=== PATIENT | male | born 1980 | race Caucasian/White ===

== ENCOUNTER 2019-03-20 18:19 | Inpatient (IN) | payer SELFPAY ==
[2019-03-20] MEDS ORDERED: diphenhydrAMINE HCL 50 MG CAPSULE PO ONE (18:39)
--- NOTE | 2019-03-20 18:39 | PDOC ---
Rapid Medical Evaluation Time Seen by Provider: 03/20/19 18:36 Medical Evaluation: 03/20/19 18:37 CC: rash and myalgias. recent travel to [place]: fine pink macular rash to entire body Orders: benadryl Patient will proceed Discharge Disposition - Diagnosis Rash - Referrals - Patient Instructions - Post Discharge Activity
[2019-03-20] MEDS ORDERED: diphenhydrAMINE HCL 25 MG CAPSULE (FP) PO ONE (19:48)
[2019-03-20] MEDS ORDERED: SODIUM CHLORIDE 1,000 ML IV STA ×2 (20:21→22:08)
[2019-03-20] MEDS ORDERED: methylPREDNISolone NA SUCC 125 MG/2 ML VIAL IVPUSH ONE (20:21)
--- NOTE | 2019-03-20 20:21 | PDOC ---
History of Present Illness - General Chief Complaint: Rash Stated Complaint: TORSO/RASHES/INTERNAL DISCOMFORT Time Seen by Provider: 03/20/19 18:36 History Source: Patient Exam Limitations: No Limitations - History of Present Illness Initial Comments: 38 year old male with PMH HTN (lifestyle management) presented to ED for diffuse body rash since Wednesday morning. Pt reported wednesday night he began to feel generalized weakness, and so his mother gave him an Amoxicillin pill, which did not improve his symptoms. [place] , and he took two Albendazole pills 03/12/19 because "I figured I should flush myself out, you never know what you eat there". Pt also reported starting a multi-vitamin x5 days ago. He denied new soaps, fragrances, detergents. He denied nausea, vomiting, shortness of breath, chest pain, lightheadedness, syncope. He reported he has been taking Benadryl at home without relief of his pain. He denied memory of mosquito bite. PCP: none Past History - Past Medical History Allergies/Adverse Reactions: Allergies Allergy/AdvReac Type Severity Reaction Status Date / Time No Known Allergies Allergy Verified 03/20/19 18:37 Home Medications: Ambulatory Orders Diphenhydramine [Benadryl -] 50 mg PO DAILY 03/20/19 - Immunization History Immunization Up to Date: Yes - Psycho Social/Smoking Cessation Hx Smoking History: Never smoked Hx Alcohol Use: No Drug/Substance Use Hx: No Review of Systems - Review of Systems Able to Perform ROS?: Yes Comments:: ROS General: denied fever, chills, generalized weakness. HEENT: denied sore throat, rhinorrhea, ear pain. Cardiovascular: denied chest pain, palpitations, syncope, diaphoresis. Respiratory: denied shortness of breath, cough, sputum production, hemoptysis. Gastrointestinal: denied abdominal pain, nausea, vomiting, diarrhea, constipation, blood in stool. Genitourinary: denied dysuria, increased urinary frequency, hematuria, urinary incontinence, flank pain. Back: denied back pain. Musculoskeletal: denied joint pain, muscle pain, joint swelling. Neurological: denied headache, dizziness, numbness, tingling, weakness. Integumentary: admitted to rash. denied laceration, abrasion. Hematologic/Lymphatic: denied bruising or bleeding. PE Constitutional: Well-nourished, Well-developed, appearing stated age. HEENT: head is normocephalic, atraumatic. EOMI. PERRLA. Neck: supple. Full ROM. Cardiovascular: regular heart rhythm. no murmurs. no pericardial friction rub. Respiratory: clear to auscultation bilaterally. no crackles, rhonchi or wheezing. no stridor. Gastrointestinal: soft, nontender. normal bowel sounds. no rebound, guarding, masses. Extremities: peripheral pulses intact. no lower extremity edema. Neurological: CN 2-12 grossly intact. moves all four extremities. Psych: awake, alert, oriented x3. follows commands. answers questions appropriately. Skin: diffuse macular erythematous rash to chest, trunk, back, all extremities, face. *Physical Exam - Vital Signs Last Vital Signs Temp Pulse Resp BP Pulse Ox 99.6 F 107 H 18 166/95 100 03/20/19 18:38 03/20/19 18:38 03/20/19 18:38 03/20/19 18:38 03/20/19 18:38 ED Treatment Course - LABORATORY CBC & Chemistry Diagram: 03/20/19 20:35 03/20/19 20:35 - Medications Given in the ED: ED Medications Discontinued Medications Generic Name Dose Route Start Last Admin Trade Name Freq PRN Reason Stop Dose Admin Diphenhydramine HCl 50 mg 03/20/19 18:39 03/20/19 19:51 Benadryl - PO 03/20/19 18:40 50 mg ONCE ONE Administration Medical Decision Making - Medical Decision Making 38 year old male with above PMH presented to ED for diffuse rash, has ingested multiple medications not prescribed to him recently, recent travel from the . Initial Vital Signs Temp Pulse Resp BP Pulse Ox 99.6 F 107 H 18 166/95 100 03/20/19 18:38 03/20/19 18:38 03/20/19 18:38 03/20/19 18:38 03/20/19 18:38 Low grade fever. Tachycardic. No tachypnea. Hypertensive. No hypoxia on room air. Pt was given Benadryl 50 mg PO by RME prior to my evaluation. Labs ordered: CBC, CMP, ESR, CRP, UA Imaging ordered: none Medications ordered: solumedrol, normal saline bolus 1000 cc once, toradol 30 mg IV once EKG performed at 2233: rate 80, regular rhythm, normal axis, QTc 463, no acute ST changes. 03/20/19 22:02 CBC WBC 2.5 K/mm3 (4.0-10.0) L 03/20/19 20:35 RBC 5.52 M/mm3 (4.00-5.60) 03/20/19 20:35 Hgb 16.9 GM/dL (11.7-16.9) 03/20/19 20:35 Hct 48.8 % (35.4-49) 03/20/19 20:35 MCV 88.4 fl (80-96) 03/20/19 20:35 MCH 30.7 pg (25.7-33.7) 03/20/19 20:35 MCHC 34.7 g/dl (32.0-35.9) 03/20/19 20:35 RDW 13.2 % (11.9-15.9) 03/20/19 20:35 Plt Count 162 K/MM3 (134-434) 03/20/19 20:35 MPV 8.5 fl (7.5-11.1) 03/20/19 20:35 Absolute Neuts (auto) 1.3 K/mm3 (1.5-8.0) L 03/20/19 20:35 Neutrophils % 53.2 % (42.8-82.8) 03/20/19 20:35 Lymphocytes % 26.3 % (8-40) 03/20/19 20:35 Monocytes % 19.9 % (3.8-10.2) H 03/20/19 20:35 Eosinophils % 0.2 % (0-4.5) 03/20/19 20:35 Basophils % 0.4 % (0-2.0) 03/20/19 20:35 Nucleated RBC % 0 % (0-0) 03/20/19 20:35 ESR 13 mm/hr (0-10) H 03/20/19 20:35 CMP Sodium 134 mmol/L (136-145) L 03/20/19 20:35 Potassium 3.7 mmol/L (3.5-5.1) 03/20/19 20:35 Chloride 100 mmol/L (98-107) 03/20/19 20:35 Carbon Dioxide 29 mmol/L (21-32) 03/20/19 20:35 Anion Gap 4 MMOL/L (8-16) L 03/20/19 20:35 BUN 13.4 mg/dL (7-18) 03/20/19 20:35 Creatinine 1.2 mg/dL (0.55-1.3) 03/20/19 20:35 Est GFR (CKD-EPI)AfAm 87.14 03/20/19 20:35 Est GFR (CKD-EPI)NonAf 75.19 03/20/19 20:35 Random Glucose 88 mg/dL (74-106) 03/20/19 20:35 Calcium 9.2 mg/dL (8.5-10.1) 03/20/19 20:35 Total Bilirubin 0.6 mg/dL (0.2-1) 03/20/19 20:35 AST 31 U/L (15-37) 03/20/19 20:35 ALT 50 U/L (13-61) 03/20/19 20:35 Alkaline Phosphatase 98 U/L (45-117) 03/20/19 20:35 C-Reactive Protein 0.6 MG/DL (0.00-0.3) H 03/20/19 20:35 Total Protein 8.9 g/dl (6.4-8.2) H 03/20/19 20:35 Albumin 4.6 g/dl (3.4-5.0) 03/20/19 20:35 Leukopenia. No anemia. Mild hyponatremia - IVF running Borderline Cr - IVF running No transaminitis. Elevated CRP and ESR. Urine Test Results Urine Color Yellow 03/20/19 21:00 Urine Appearance Clear 03/20/19 21:00 Urine pH 5.5 (5.0-8.0) 03/20/19 21:00 Ur Specific [place] 1.022 (1.010-1.035) 03/20/19 21:00 Urine Protein 1+ (NEGATIVE) H 03/20/19 21:00 Urine Glucose (UA) Negative (NEGATIVE) 03/20/19 21:00 Urine Ketones Negative (NEGATIVE) 03/20/19 21:00 Urine Blood 3+ (NEGATIVE) H 03/20/19 21:00 Urine Nitrite Negative (NEGATIVE) 03/20/19 21:00 Urine Bilirubin Negative (NEGATIVE) 03/20/19 21:00 Ur Leukocyte Esterase Negative (NEGATIVE) 03/20/19 21:00 Negative for UTI. Positive hematuria. Positive proteinuria. I spoke with Dr. Mejia, ID, about the patient, he advised admission, malaria screening, syphilis screening, IV fluids. He recommended no antibiotic treatment at this time. He reported that the pt can be given Zosyn if he starts to spike fevers overnight. Results explained to patient, pt advised to stay in hospital for full ID workup. He agreed with plan for care. 03/20/19 22:44 Sign out given to admitting team. Pending admission under Dr. Goldman care. Discharge - Discharge Information Problems reviewed: Yes Clinical Impression/Diagnosis: Rash, Fever, Leukopenia Condition: Stable - Admission Yes - Follow up/Referral - Patient Discharge Instructions - Post Discharge Activity
[2019-03-20] MEDS ORDERED: KETOROLAC TROMETHAMINE 30 MG/1 ML VIAL IVPUSH ONE (20:22)
--- NOTE | 2019-03-20 20:41 | PDOC ---
Attending Attestation - Resident Resident Name: KanwalJuana - ED Attending Attestation I have performed the following: I have examined & evaluated the patient, The case was reviewed & discussed with the resident, I agree w/resident's findings & plan, Exceptions are as noted - HPI HPI: 03/20/19 20:40 38-year-old male presents with complaint of weakness "" internal discomfort " and a fine maculopapular rash on his face ,torso and extremities He has a fever HPI he had been vacationing in the [place] and returned to this country 1 week ago. Starting on Wednesday night Wednesday he developed a rash - Physicial Exam PE: 03/20/19 20:43 Well-nourished well-developed 38-year-old male presents with fever and fine maculopapular rash on his face torso and extremities Head normocephalic atraumatic Neck is supple Lungs are clear to auscultation bilaterally CVS is tachycardia Abdomen soft, nontender no guarding Skin erythematous fine maculopapular rash to much of his body, no vesicles, no abscesses, no petechiae Neuro alert and oriented x3, ambulating with ease - Medical Decision Making 03/20/19 20:44 Review of systems is negative for headache, neck pain, nausea, vomiting, chest pain, cough, shortness of breath Plan blood cultures, urine, CBC, chemistry IV fluids Tylenol and reassess 03/20/19 22:00 pt has a leukocytopennia ,absolute neutrophil count is 1.3 labs for mosquito borne illnesses ordered case discussed with Dr Mejia and he recommended admission pt receiving tylenol,IV fluids 03/20/19 22:36
[2019-03-20 20:46] LABS: BASO % 0.4 % (0-2.0); EOS % 0.2 % (0-4.5); HEMATOCRIT 48.8 % (35.4-49); HEMOGLOBIN 16.9 GM/dL (11.7-16.9); LYMPH % 26.3 % (8-40); MCH 30.7 pg (25.7-33.7); MCHC 34.7 g/dl (32.0-35.9); MEAN CELL VOLUME 88.4 fl (80-96); MEAN PLT VOLUME 8.5 fl (7.5-11.1); MONO % 19.9 % (3.8-10.2); NEUT % 53.2 % (42.8-82.8); PLATELET COUNT 162 K/MM3 (134-434); RBC 5.52 M/mm3 (4.00-5.60); RDW 13.2 % (11.9-15.9); WHITE BLOOD COUNT 2.5 K/mm3 (4.0-10.0)
[2019-03-20] MEDS ORDERED: KETOROLAC TROMETHAMINE 30 MG/1 ML VIAL ONE (21:00)
[2019-03-20] MEDS ORDERED: methylPREDNISolone NA SUCC 125 MG/2 ML VIAL ONE (21:01)
[2019-03-20 21:23] LABS: ALBUMIN 4.6 g/dl (3.4-5.0); BILIRUBIN,TOTAL 0.6 mg/dL (0.2-1); BLOOD UREA NITROGEN 13.4 mg/dL (7-18); CALCIUM 9.2 mg/dL (8.5-10.1); CREATININE 1.2 mg/dL (0.55-1.3); POTASSIUM 3.7 mmol/L (3.5-5.1); TOT PROT 8.9 g/dl (6.4-8.2)
[2019-03-20 21:41] LABS: EPI CELLS 0.4 /HPF (0-5/HPF); HYALINE CASTS 2 /lpf (0-8); PH,URINE 5.5 (5.0-8.0); URINE APPEARANCE CLEAR; URINE BACTERIA 0.3 /hpf (NEGATIVE); URINE BILIRUBIN NEGATIVE (NEGATIVE); URINE COLOR YELLOW; URINE GLUCOSE (UA) NEGATIVE (NEGATIVE); URINE KETONE NEGATIVE (NEGATIVE); URINE LEUK ESTERASE NEGATIVE (NEGATIVE); URINE NITRITE NEGATIVE (NEGATIVE); URINE PROTEIN 1+ (NEGATIVE); URINE RBC 9 /hpf (0-4); URINE UROBILINOGEN 0.2 mg/dL (0.2-1.0); URINE WBC 1 /hpf (0-5)
[2019-03-20] MEDS ORDERED: ACETAMINOPHEN 325 MG TABLET (FP) PO PRN (23:02)
--- NOTE | 2019-03-20 23:02 | PN ---
Teaching Attending Note Name of Resident: Kellie Mcclure ATTENDING PHYSICIAN STATEMENT I saw and evaluated the patient. I reviewed the resident's note and discussed the case with the resident. I agree with the resident's findings and plan as documented. SUBJECTIVE: 38-year-old male previously healthy complained of general malaise which started on Wednesday, March 17. Patient felt febrile and had lack of energy. The next day he took his mother's ampicillin and albendazole and subsequently developed An itchy rash which started on his chest and spread to his extremities and abdomen. He denied any significant fevers or chills following this. He did complain of headache which started with his general malaise on Wednesday. Of note patient reports a recent trip to [facility], returned on the . He was there for 9 days, stayed in urban environment. Denied any obvious insect or mosquito bites. Rashes what prompted patient to come to the emergency room seeking medical attention. Patient reports that his rash has improved after he received medications in the emergency department. Medications were Solu-Medrol and Benadryl p.o. OBJECTIVE: Last Vital Signs Temp Pulse Resp BP Pulse Ox 98.2 F 71 18 139/90 99 03/20/19 23:49 03/20/19 23:49 03/20/19 23:49 03/20/19 23:49 03/20/19 23:49 GENERAL: Well developed, well nourished. Awake and alert. No acute distress. HEENT: Normocephalic, atraumatic. PERRLA, EOMI. No conjunctival pallor. Sclera are non- icteric. Moist mucous membranes. Oropharynx is clear. NECK: Supple. Full ROM. No JVD. Carotid pulses 2+ and symmetric, without bruits. No thyromegaly. No lymphadenopathy. CARDIOVASCULAR: Regular rate and rhythm. No murmurs, rubs, or gallops. Distal pulses are 2+ and symmetric. PULMONARY: No evidence of respiratory distress. Lungs clear to auscultation bilaterally. No wheezing, rales or rhonchi. ABDOMINAL: Soft. Non-tender. Non-distended. No rebound or guarding. No organomegaly. Normoactive bowel sounds. MUSCULOSKELETAL Normal range of motion at all joints. No bony deformities or tenderness. No CVA tenderness. EXTREMITIES: No cyanosis. No clubbing. No edema. No calf tenderness. SKIN: Maculopapular rash on chest back abdomen and extremities PSYCHIATRIC: Cooperative. Good eye contact. Appropriate mood and affect. Abnormal Lab Results 03/20/19 03/20/19 03/20/19 20:35 20:35 20:35 WBC 2.5 L Absolute Neuts (auto) 1.3 L Monocytes % 19.9 H ESR Sodium 134 L Anion Gap 4 L C-Reactive Protein 0.6 H Total Protein 8.9 H Urine Protein Urine Blood 03/20/19 03/20/19 20:35 21:00 WBC Absolute Neuts (auto) Monocytes % ESR 13 H Sodium Anion Gap C-Reactive Protein Total Protein Urine Protein 1+ H Urine Blood 3+ H Imaging reviewed ASSESSMENT AND PLAN: 38-year-old male with what seems to be a Septic picture secondary to URI which started on 17 March. Might have been the flu. The rash that he developed the next day is likely a drug rash secondary to ampicillin or albendazole. Much less likely on the differential is rash secondary to mosquito borne illness such as Chikenguya or dengue virus or Zika virus. Leukopeniauncertain etiology. May be secondary to underlying viral infection that is suspected however would be good to rule out HIV and viral hepatitis. MedSurg IV fluid hydration P.o. fluids Tylenol if fever Benadryl as needed for rash Monitor CBC HIV and viral hepatitis serologies Send Zika, Chikinguya, dengue serologies Blood smear for malaria RPR CK level SCDs for DVT prophylaxis
[2019-03-20 23:41] LABS: INR 1.03 (0.83-1.09); PROTHROMBIN TIME (PATIENT) 12.1 SEC (9.7-13.0)
[2019-03-20 23:43] LABS: ACTIVATED PTT 36.5 SECONDS (25.2-36.5)
--- NOTE | 2019-03-21 00:17 | HP ---
CHIEF COMPLAINT: generalized weakness and rash PCP: none HISTORY OF PRESENT ILLNESS: 38 year old male with PMH of HTN presenting with generalized weakness, fatigue and diffuse body rash. Patient returned from [facility] on 03/13 and began feeling chills, weak with diffuse body and muscle aches on Wednesday. He took amoxicillin 500mg , albendazole and Benadryl 50mg with no relief of his symptoms.On Wednesday morning, he noticed a rash on his chest that is maculopapular and pruritic in nature which spread peripherally to his face, back and extremities. He denies any change in morphology of the rash since onset. . Pt further denies taking malaria prophylaxis, use of mosquito nets, tick bites, wild animals or sick contacts during his trip. Patient admits to being immunized as child though he endorsed a history of chickenpox in childhood. He is currently sexually active only with girlfriend and does not use any contraception. He has never been tested for any sexually transmitted diseases such as HIV and syphilis. Patient endorses subjective fevers, night sweat, nausea, headaches, loss of appetite with 4 lbs weight loss and joint pain in the knees when walking. Denies changes in vision, SOB, palpitations, vomiting, change in BM and urination, joint swelling or focal weakness/ numbness. ER course was notable for: (1) CBC remarkable for leukopenia 2.5, CMP unremarkable. ESR 13, CRP 0.6 (2) UA postive for 1+ protein, and 3+blood. ID Dr Mejia consulted. No abx at this time unless fever spike. malaria, dengue,HIV and syphilis testing (3) benadryl, ketoralac, solumedrol, 2L NS bolus Recent Travel: [facility] PAST MEDICAL HISTORY: as above PAST SURGICAL HISTORY: shoulder surgery 2/2 lipoma FAMILY HISTORY: : mom with HTN and dad with hx of stroke Social History: Smoking:denies Alcohol:social drinker Drugs: denies Allergies No Known Allergies Allergy (Verified 03/20/19 18:37) HOME MEDICATIONS: Home Medications Medication Instructions Recorded Diphenhydramine [Benadryl -] 50 mg PO DAILY 03/20/19 REVIEW OF SYSTEMS CONSTITUTIONAL: fever, chills,generalized weakness Absent: diaphoresis, , malaise, loss of appetite, weight change HEENT: Absent: rhinorrhea, nasal congestion, throat pain, throat swelling, difficulty swallowing, mouth swelling, ear pain, eye pain, visual changes CARDIOVASCULAR: Absent: chest pain, syncope, palpitations, irregular heart rate, lightheadedness , peripheral edema RESPIRATORY: Absent: cough, shortness of breath, dyspnea with exertion, orthopnea, wheezing, stridor, hemoptysis GASTROINTESTINAL: nausea Absent: abdominal pain, abdominal distension, vomiting, diarrhea, constipation, melena, hematochezia GENITOURINARY: Absent: dysuria, frequency, urgency, hesitancy, hematuria, flank pain, genital pain MUSCULOSKELETAL: myalgia, arthralgia Absent: joint swelling, back pain, neck pain SKIN: rash, itching, Absent: pallor HEMATOLOGIC/IMMUNOLOGIC: Absent: easy bleeding, easy bruising, lymphadenopathy, frequent infections ENDOCRINE: Absent: unexplained weight gain, unexplained weight loss, heat intolerance, cold intolerance NEUROLOGIC: headache Absent: focal weakness or paresthesias, dizziness, unsteady gait, seizure, mental status changes, bladder or bowel incontinence PSYCHIATRIC: Absent: anxiety, depression, suicidal or homicidal ideation, hallucinations. PHYSICAL EXAMINATION Vital Signs - 24 hr 03/20/19 03/20/19 18:38 23:49 Temperature 99.6 F 98.2 F Pulse Rate 107 H Pulse Rate [ 71 Left Radial] Respiratory 18 18 Rate Blood Pressure 166/95 Blood Pressure 139/90 [Right Arm] O2 Sat by Pulse 100 99 Oximetry (%) GENERAL: Awake, alert, and fully oriented, in no acute distress. HEAD: Normal with no signs of trauma. EYES: Pupils equal, round and reactive to light, extraocular movements intact, sclera anicteric, conjunctiva clear. No lid lag. EARS, NOSE, THROAT: oropharynx clear without exudates. Moist mucous membranes. NECK: Normal range of motion, supple without lymphadenopathy, JVD, or masses. LUNGS: Breath sounds equal, clear to auscultation bilaterally. No wheezes, and no crackles. No accessory muscle use. HEART: Regular rate and rhythm, normal S1 and S2 without murmur, rub or gallop. ABDOMEN: Soft, nontender, not distended, normoactive bowel sounds, no guarding, no rebound, no masses. No hepatomegaly or splenomegaly. MUSCULOSKELETAL: Normal range of motion at all joints. No bony deformities or tenderness. No CVA tenderness. UPPER EXTREMITIES: 2+ pulses, warm, well-perfused. No cyanosis. No clubbing. No peripheral edema. LOWER EXTREMITIES: 2+ pulses, warm, well-perfused. No calf tenderness. No peripheral edema. PSYCHIATRIC: Cooperative. Good eye contact. Appropriate mood and affect. SKIN: Warm, dry, normal turgor, generalized erythematous maculopapular rash Laboratory Results - last 24 hr 03/20/19 03/20/19 03/20/19 20:35 20:35 20:35 WBC 2.5 L RBC 5.52 Hgb 16.9 Hct 48.8 MCV 88.4 MCH 30.7 MCHC 34.7 RDW 13.2 Plt Count 162 MPV 8.5 Absolute Neuts (auto) 1.3 L Neutrophils % 53.2 Lymphocytes % 26.3 Monocytes % 19.9 H Eosinophils % 0.2 Basophils % 0.4 Nucleated RBC % 0 ESR PT with INR INR PTT (Actin FS) Sodium 134 L Potassium 3.7 Chloride 100 Carbon Dioxide 29 Anion Gap 4 L BUN 13.4 Creatinine 1.2 Est GFR (CKD-EPI)AfAm 87.14 Est GFR (CKD-EPI)NonAf 75.19 Random Glucose 88 Lactic Acid Calcium 9.2 Total Bilirubin 0.6 AST 31 ALT 50 Alkaline Phosphatase 98 C-Reactive Protein 0.6 H Total Protein 8.9 H Albumin 4.6 Urine Color Urine Appearance Urine pH Ur Specific [place] Urine Protein Urine Glucose (UA) Urine Ketones Urine Blood Urine Nitrite Urine Bilirubin Urine Urobilinogen Ur Leukocyte Esterase Urine WBC (Auto) Urine RBC (Auto) Urine Casts (Auto) U Epithel Cells (Auto) Urine Bacteria (Auto) 03/20/19 03/20/19 03/20/19 20:35 21:00 22:40 WBC RBC Hgb Hct MCV MCH MCHC RDW Plt Count MPV Absolute Neuts (auto) Neutrophils % Lymphocytes % Monocytes % Eosinophils % Basophils % Nucleated RBC % ESR 13 H PT with INR 12.10 INR 1.03 PTT (Actin FS) 36.5 Sodium Potassium Chloride Carbon Dioxide Anion Gap BUN Creatinine Est GFR (CKD-EPI)AfAm Est GFR (CKD-EPI)NonAf Random Glucose Lactic Acid Calcium Total Bilirubin AST ALT Alkaline Phosphatase C-Reactive Protein Total Protein Albumin Urine Color Yellow Urine Appearance Clear Urine pH 5.5 Ur Specific [place] 1.022 Urine Protein 1+ H Urine Glucose (UA) Negative Urine Ketones Negative Urine Blood 3+ H Urine Nitrite Negative Urine Bilirubin Negative Urine Urobilinogen 0.2 Ur Leukocyte Esterase Negative Urine WBC (Auto) 1 Urine RBC (Auto) 9 Urine Casts (Auto) 2 U Epithel Cells (Auto) 0.4 Urine Bacteria (Auto) 0.3 03/20/19 23:04 WBC RBC Hgb Hct MCV MCH MCHC RDW Plt Count MPV Absolute Neuts (auto) Neutrophils % Lymphocytes % Monocytes % Eosinophils % Basophils % Nucleated RBC % ESR PT with INR INR PTT (Actin FS) Sodium Potassium Chloride Carbon Dioxide Anion Gap BUN Creatinine Est GFR (CKD-EPI)AfAm Est GFR (CKD-EPI)NonAf Random Glucose Lactic Acid 0.8 Calcium Total Bilirubin AST ALT Alkaline Phosphatase C-Reactive Protein Total Protein Albumin Urine Color Urine Appearance Urine pH Ur Specific [place] Urine Protein Urine Glucose (UA) Urine Ketones Urine Blood Urine Nitrite Urine Bilirubin Urine Urobilinogen Ur Leukocyte Esterase Urine WBC (Auto) Urine RBC (Auto) Urine Casts (Auto) U Epithel Cells (Auto) Urine Bacteria (Auto) ASSESSMENT/PLAN: 38 year old male with PMH of HTN presenting with generalized weakness, fatigue and diffuse body rash. Admitted for rash; concerning for infectious source as pt has recent travel area to endemic region for diseases including malaria, dengue, chikengunya, zika, hepatitis, HIV, syphilis vs drug reaction Maculopapular rash infectious vs drug reaction from b-lactams or benadryl PRN blood cultures and urine cultures hepatitis panel RPR for syphilis screen (though rash spares palm and soles) HIV fourth generation blood smear for parasitic organism including malaria serology for zika,dengue,chikengunya ID Dr Mejia consulted flu vaccine given Leukopenia unsure of source. infectious? f/u HIV and other infectious test results repeat CBC in the AM. monitor sepsis work up sent since pt has leukopenia, temp 99.4 and tachycardia on admission at 107 abnormal UA UA positive for 3+ blood and 1+ protein CPK sent HTN resume home meds once med rec FEN NS@100 regular diet DVT SCDs Visit type - Emergency Visit Emergency Visit: Yes ED Registration Date: 03/20/19 Care time: The patient presented to the Emergency Department on the above date and was hospitalized for further evaluation of their emergent condition. - New Patient This patient is new to me today: Yes Date on this admission: 03/21/19 - Critical Care Critical Care patient: No ATTENDING PHYSICIAN STATEMENT I saw and evaluated the patient. I reviewed the resident's note and discussed the case with the resident. I agree with the resident's findings and plan as documented. SUBJECTIVE: OBJECTIVE: ASSESSMENT AND PLAN:
[2019-03-21] MEDS: SODIUM CHLORIDE 1,000 ML IV SCH ×3 (00:35→17:45)
[2019-03-21 04:10] VITALS: BMI 30.1
[2019-03-21] MEDS ORDERED: diphenhydrAMINE HCL 25 MG CAPSULE (FP) PO PRN (06:08)
[2019-03-21 07:37] LABS: BASO % 0.5 % (0-2.0); HEMOGLOBIN 14.6 GM/dL (11.7-16.9); LYMPH % 18.9 % (8-40); MCH 30.8 pg (25.7-33.7); MCHC 35.7 g/dl (32.0-35.9); MEAN CELL VOLUME 86.3 fl (80-96); MEAN PLT VOLUME 8.4 fl (7.5-11.1); MONO % 11.7 % (3.8-10.2); NEUT % 68.9 % (42.8-82.8); PLATELET COUNT 136 K/MM3 (134-434); RBC 4.75 M/mm3 (4.00-5.60); RDW 12.9 % (11.9-15.9); WHITE BLOOD COUNT 2.5 K/mm3 (4.0-10.0)
[2019-03-21 07:54] LABS: ALBUMIN 3.7 g/dl (3.4-5.0); BILIRUBIN,TOTAL 0.6 mg/dL (0.2-1); CALCIUM 8.4 mg/dL (8.5-10.1); MAGNESIUM 2.1 mg/dL (1.8-2.4); PHOSPHOROUS 3.2 mg/dL (2.5-4.9); POTASSIUM 3.9 mmol/L (3.5-5.1); TOT PROT 7.4 g/dl (6.4-8.2)
--- NOTE | 2019-03-21 09:18 | EKG ---
Test Reason : Blood Pressure : / mmHG Vent. Rate : 080 BPM Atrial Rate : 080 BPM P-R Int : 142 ms QRS Dur : 098 ms QT Int : 402 ms P-R-T Axes : 066 031 005 degrees QTc Int : 463 ms NORMAL SINUS RHYTHM NONSPECIFIC T WAVE ABNORMALITY PROLONGED QT ABNORMAL ECG NO PREVIOUS ECGS AVAILABLE Confirmed by MD Gildardo, Jese ([id number]) on 03/21/2019 9:18:13 AM Referred By: Confirmed By:Jese Ewing MD
[2019-03-21] MEDS ORDERED: FLU VACCINE QUAD 60 MCG/0.5 ML (MDV 19-20) IM ONE (10:00)
--- NOTE | 2019-03-21 11:18 | CON.ID ---
Consult Consult Specialty:: infectious diseases Referred by:: hospitalist Reason for Consultation:: fever,rash - History of Present Illness Chief Complaint: fever,rash,itching,weakness History of Present Illness: 38 year old male with PMH of HTN presenting with generalized weakness, fatigue and diffuse body rash. Patient returned from [facility] on 03/13 and began feeling chills, weak with diffuse body and muscle aches on Wednesday. He took amoxicillin 500mg , albendazole and Benadryl 50mg with no relief of his symptoms.On Wednesday morning, he noticed a rash on his chest that is maculopapular and pruritic in nature which spread peripherally to his face, back and extremities. He denies any change in morphology of the rash since onset. . mentions that he was with his girlfreind in [facility] [place] today feels better does mention that he was bitten by mosquito currently feels a bit better - History Source History Provided By: Patient Limitations to Obtaining History: No Limitations - Alcohol/Substance Use Hx Alcohol Use: No - Smoking History Smoking history: Never smoked Home Medications - Allergies Allergies/Adverse Reactions: Allergies Allergy/AdvReac Type Severity Reaction Status Date / Time No Known Allergies Allergy Verified 03/20/19 18:37 - Home Medications Home Medications: Ambulatory Orders Diphenhydramine [Benadryl -] 50 mg PO DAILY 03/20/19 Review of Systems - Review of Systems Constitutional: reports: Chills, Fever, Other (sweat) Eyes: reports: No Symptoms HENT: reports: No Symptoms Neck: reports: No Symptoms Cardiovascular: reports: No Symptoms Respiratory: reports: No Symptoms Gastrointestinal: reports: No Symptoms Genitourinary: reports: No Symptoms Musculoskeletal: reports: Joint Pain Integumentary: reports: Rash Neurological: reports: No Symptoms Endocrine: reports: No Symptoms Hematology/Lymphatic: reports: No Symptoms Psychiatric: reports: No Symptoms Physical Exam Vital Signs: Vital Signs Temperature 98.3 F 03/21/19 10:00 Pulse Rate 84 03/21/19 10:00 Respiratory Rate 20 03/21/19 10:00 Blood Pressure 136/84 03/21/19 10:00 O2 Sat by Pulse Oximetry (%) 99 03/21/19 09:00 Constitutional: Yes: Well Nourished, Calm, Mild Distress Eyes: Yes: Conjunctiva Clear Neck: Yes: Supple, Trachea Midline Cardiovascular: Yes: Regular Rate and Rhythm Respiratory: Yes: Regular, CTA Bilaterally Gastrointestinal: Yes: Normal Bowel Sounds, Soft Musculoskeletal: Yes: WNL Extremities: Yes: WNL Integumentary: Yes: Rash, Other Neurological: Yes: Alert, Oriented Psychiatric: Yes: Alert, Oriented Labs: CBC, BMP 03/21/19 06:30 03/21/19 06:30 Imaging - Results Chest X-ray: Report Reviewed, Image Reviewed Assessment/Plan this patient coming to the hospital with rash all over the body who travelled to [facility] patient probably has dengue continue supportive care if all work up negative can send patient home and give supportive care rest as per the team await for all results though
--- NOTE | 2019-03-21 15:08 | PN ---
Physical Exam: SUBJECTIVE: Patient seen and examined in the morning. No acute events overnight. No complaints of chest pain, shortness of breath, fever, chills, cough, myalgias, headaches, pruritus overnight. OBJECTIVE: Vital Signs Period Temp Pulse Resp BP Sys/Laws Pulse Ox Last 24 Hr 98.2 F-99.6 F 66-107 18-20 136-166/79-95 99-100 GENERAL: The patient is awake, alert, and fully oriented, in no acute distress. HEAD: Normal with no signs of trauma. EYES: PERRL, extraocular movements intact, sclera anicteric, conjunctiva clear. No ptosis. ENT: No m NECK: Trachea midline, full range of motion, supple. LUNGS: Breath sounds equal, clear to auscultation bilaterally, no wheezes, no crackles, no accessory muscle use. HEART: Regular rate and rhythm, S1, S2 without murmur, rub or gallop. ABDOMEN: Soft, nontender, nondistended, normoactive bowel sounds, no guarding, no rebound, no hepatosplenomegaly, no masses. EXTREMITIES: 2+ pulses, warm, well-perfused, no edema. NEUROLOGICAL: Cranial nerves II through XII grossly intact. Normal speech. SKIN: Warm, dry, generalized erythematous maculopapular rash on chest, back and lower extremities. Laboratory Results - last 24 hr Active Medications Generic Name Dose Route Start Last Admin Trade Name Freq PRN Reason Stop Dose Admin Acetaminophen 650 mg 03/20/19 23:02 Tylenol - PO Q4H PRN FEVER Diphenhydramine HCl 25 mg 03/21/19 06:08 Benadryl - PO Q6H PRN FOR ITCHING Sodium Chloride 1,000 mls @ 100 mls/hr 03/20/19 23:15 03/21/19 00:35 Normal Saline - IV 100 mls/hr [facility] Administration ASSESSMENT/PLAN: 38 M with PMH of HTN presenting with generalized weakness, fatigue, and diffuse rash likely secondary to viral infection. 1)Rash -Patient was in [facility] [place] 9-10 days ago. Does endorse being bitten by mosquitoes. Had symptoms of fever and chills 2 nights ago. -Diphenydramine 25 mg PO Q6H PRN -Acetaminophen 650 mg PO Q4H PRN -F/U blood cultures -HIV negative - F/U RPR - F/U dengue testing -F/U Hepatitis testing -F/U blood smear for parasites- negative 2) Leukopenia -Likely reactive to viral process. -Will monitor with CBC -Should follow up 1 week after discharge with repeat CBC with primary care physician. F: NS @ 100 ml/hr E: Monitor BMP N: Regular Diet DVT Prophylaxis: SCD's Dispo: Discharge tomorrow if continues to be stable Visit type - Emergency Visit Emergency Visit: Yes ED Registration Date: 03/20/19 Care time: The patient presented to the Emergency Department on the above date and was hospitalized for further evaluation of their emergent condition. - New Patient This patient is new to me today: Yes Date on this admission: 03/21/19 - Critical Care Critical Care patient: No ATTENDING PHYSICIAN STATEMENT I saw and evaluated the patient. I reviewed the resident's note and discussed the case with the resident. I agree with the resident's findings and plan as documented. SUBJECTIVE: OBJECTIVE: ASSESSMENT AND PLAN:
--- NOTE | 2019-03-21 15:58 | PN ---
Teaching Attending Note Name of Resident: Junie Hicks ATTENDING PHYSICIAN STATEMENT I saw and evaluated the patient. I reviewed the resident's note and discussed the case with the resident. I agree with the resident's findings and plan as documented. SUBJECTIVE: No CP , SOB, fever , chills, itching, or diarrhea. No cough , no adb pain. OBJECTIVE: NAD, MMM, CV; RRR, no MRG Lungs: CTAB Abd: soft, NT, ND , NL BS Ext : No edema on upper or lower extremities . Skin: maculopapular rash on trunk, upepr and lower extremities. no rash on palms and soles, or ulcers on MM. ASSESSMENT AND PLAN: 38 y/o man with no sig PMH, but recent travel to , who presented with fever and then rash after Abx use. 1- Fever: most likely viral in etiology ( Flu, vs Dungue, Vs other ) No signs of bacterial infection . cxray and UA are unremarkable - follow blood cx - No parasites in blood smear. - follow all the serology that's pending - symptomatic treatment - hold off Abx 2- rash: likely due to Abx vs viral infection - monitor possible dc tomorrow if blood cx neg
[2019-03-21] MEDS ORDERED: PT OWN MED DRAWER 7, Y5N ONE (17:25)
[2019-03-22 08:00] LABS: BASO % 0.3 % (0-2.0); EOS % 1.6 % (0-4.5); HEMATOCRIT 40.8 % (35.4-49); HEMOGLOBIN 14.1 GM/dL (11.7-16.9); LYMPH % 38.4 % (8-40); MCH 30.1 pg (25.7-33.7); MCHC 34.5 g/dl (32.0-35.9); MEAN CELL VOLUME 87.3 fl (80-96); MEAN PLT VOLUME 8.1 fl (7.5-11.1); MONO % 28.8 % (3.8-10.2); NEUT % 30.9 % (42.8-82.8); PLATELET COUNT 119 K/MM3 (134-434); RBC 4.67 M/mm3 (4.00-5.60)
[2019-03-22 08:39] LABS: BLOOD UREA NITROGEN 11.7 mg/dL (7-18); CALCIUM 8.2 mg/dL (8.5-10.1); POTASSIUM 3.8 mmol/L (3.5-5.1)
--- NOTE | 2019-03-22 09:33 | PN ---
Teaching Attending Note Name of Resident: Marilia Gerardo ATTENDING PHYSICIAN STATEMENT I saw and evaluated the patient. I reviewed the resident's note and discussed the case with the resident. I agree with the resident's findings and plan as documented. SUBJECTIVE: Patient is feeling better with no acute distress, as per patient , he has no further rash. Just itching when takes shower. OBJECTIVE: Vital Signs Temperature 97.8 F 03/22/19 06:28 Pulse Rate 59 L 03/22/19 06:28 Respiratory Rate 20 03/22/19 06:28 Blood Pressure 116/62 03/22/19 06:28 O2 Sat by Pulse Oximetry (%) 99 03/21/19 21:00 GENERAL: The patient is awake, alert, and fully oriented, in no acute distress. HEAD: Normal with no signs of trauma. EYES: PERRL, extraocular movements intact, sclera anicteric, conjunctiva clear. ENT: Ears normal, oropharynx clear without exudates, moist mucous membranes. NECK: Trachea midline, full range of motion, supple. LUNGS: Breath sounds equal, clear to auscultation bilaterally, no wheezes, no crackles, no accessory muscle use. HEART: Regular rate and rhythm, S1, S2 without murmur, rub or gallop. ABDOMEN: Soft, nontender, nondistended, normoactive bowel sounds, no guarding, no rebound, no hepatosplenomegaly, no masses. EXTREMITIES: 2+ pulses, warm, well-perfused, no edema. NEUROLOGICAL: Cranial nerves II through XII grossly intact. Normal speech, gait not observed. PSYCH: Normal mood, normal affect. SKIN: Warm, dry, normal turgor, no rashes or lesions noted CBCD WBC 3.0 K/mm3 (4.0-10.0) L 03/22/19 07:30 RBC 4.67 M/mm3 (4.00-5.60) 03/22/19 07:30 Hgb 14.1 GM/dL (11.7-16.9) 03/22/19 07:30 Hct 40.8 % (35.4-49) 03/22/19 07:30 MCV 87.3 fl (80-96) 03/22/19 07:30 MCHC 34.5 g/dl (32.0-35.9) 03/22/19 07:30 RDW 13.0 % (11.9-15.9) 03/22/19 07:30 Plt Count 119 K/MM3 (134-434) L 03/22/19 07:30 MPV 8.1 fl (7.5-11.1) 03/22/19 07:30 CMP Sodium 138 mmol/L (136-145) 03/22/19 07:30 Potassium 3.8 mmol/L (3.5-5.1) 03/22/19 07:30 Chloride 105 mmol/L (98-107) 03/22/19 07:30 Carbon Dioxide 28 mmol/L (21-32) 03/22/19 07:30 Anion Gap 5 MMOL/L (8-16) L 03/22/19 07:30 BUN 11.7 mg/dL (7-18) 03/22/19 07:30 Creatinine 1.0 mg/dL (0.55-1.3) 03/22/19 07:30 Random Glucose 101 mg/dL (74-106) 03/22/19 07:30 Calcium 8.2 mg/dL (8.5-10.1) L 03/22/19 07:30 Total Bilirubin 0.6 mg/dL (0.2-1) 03/21/19 06:30 AST 21 U/L (15-37) 03/21/19 06:30 ALT 41 U/L (13-61) 03/21/19 06:30 Alkaline Phosphatase 81 U/L (45-117) 03/21/19 06:30 Total Protein 7.4 g/dl (6.4-8.2) 03/21/19 06:30 Albumin 3.7 g/dl (3.4-5.0) 03/21/19 06:30 CARDIAC ENZYMES Creatine Kinase 96 U/L (26-308) 03/21/19 06:30 Current Medications Generic Name Dose Route Start Last Admin Trade Name Freq PRN Reason Stop Dose Admin Acetaminophen 650 mg 03/20/19 23:02 Tylenol - PO Q4H PRN FEVER Diphenhydramine HCl 25 mg 03/21/19 06:08 03/21/19 20:25 Benadryl - PO 25 mg Q6H PRN Administration FOR ITCHING Sodium Chloride 1,000 mls @ 100 mls/hr 03/20/19 23:15 03/21/19 17:45 Normal Saline - IV 100 mls/hr ASDIR NAKUL Administration Home Medications Medication Instructions Recorded Diphenhydramine [Benadryl -] 50 mg PO DAILY 03/20/19 Microbiology 03/20/19 21:00 Urine - Urine Clean Catch Urine Culture - Final NO GROWTH OBTAINED 03/20/19 22:40 Blood - Peripheral Venous Blood Culture - Preliminary NO GROWTH OBTAINED AFTER 24 HOURS, INCUBATION TO CONTINUE FOR 4 DAYS. 03/20/19 22:40 Blood - Peripheral Venous Blood Culture - Preliminary NO GROWTH OBTAINED AFTER 24 HOURS, INCUBATION TO CONTINUE FOR 4 DAYS. 03/21/19 11:50 Blood - Peripheral Venous Blood Parasites Smear - Final 03/20/19 22:10 Blood - Peripheral Venous Blood Parasites Smear - Final ASSESSMENT AND PLAN: Patient is 38 y/o man with no sig PMH, but recent travel to , who presented with fever and then rash after Abx use. # Fever:resolved completely, most likely viral in etiology ( Flu, vs Dungue, Vs other ) No signs of bacterial infection . cxray and UA are unremarkable , everything is negative so far. # rash: No further rash noted. will discharge the patient home. no further symptoms is noted.
--- NOTE | 2019-03-22 09:36 | PN ---
Progress Note, Physician History of Present Illness: stable no new issues - Current Medication List Current Medications: Active Medications Acetaminophen (Tylenol -) 650 mg PO Q4H PRN PRN Reason: FEVER Diphenhydramine HCl (Benadryl -) 25 mg PO Q6H PRN PRN Reason: FOR ITCHING Last Admin: 03/21/19 20:25 Dose: 25 mg Sodium Chloride (Normal Saline -) 1,000 mls @ 100 mls/hr IV ASDIR NAKUL Last Admin: 03/21/19 17:45 Dose: 100 mls/hr - Objective Vital Signs: Vital Signs Temperature 97.8 F 03/22/19 06:28 Pulse Rate 59 L 03/22/19 06:28 Respiratory Rate 20 03/22/19 06:28 Blood Pressure 116/62 03/22/19 06:28 O2 Sat by Pulse Oximetry (%) 99 03/21/19 21:00 Constitutional: Yes: No Distress, Calm Cardiovascular: Yes: S1, S2 Respiratory: Yes: Regular, CTA Bilaterally Gastrointestinal: Yes: Normal Bowel Sounds, Soft Musculoskeletal: Yes: WNL Extremities: Yes: WNL Integumentary: Yes: Rash (improved) Neurological: Yes: Alert, Oriented Labs: CBC, BMP 03/22/19 07:30 03/22/19 07:30 INR, PTT INR 1.03 (0.83-1.09) 03/20/19 22:40 Assessment/Plan stable no treatment rest as per the team patient can be d/jean home
[2019-03-22 10:04] LABS: ANISOCYTOSIS 0; MACROCYTOSIS 0; PLATELET ESTIMATE DECREASED
--- NOTE | 2019-03-22 13:17 | DS ---
Physical Exam: SUBJECTIVE: Patient seen and examined in the morning. No acute events overnight. Had no chest pain, no shortness of breath, no abdominal pain, no nausea, no vomiting, no fevers, no illness. OBJECTIVE: Vital Signs Period Temp Pulse Resp BP Sys/Laws Pulse Ox Last 24 Hr 97.8 F-98.8 F 59-71 18-20 116-161/62-87 99 PHYSICAL EXAM GENERAL: The patient is awake, alert, and fully oriented, in no acute distress. HEAD: Normal with no signs of trauma. EYES: PERRL, extraocular movements intact, sclera anicteric, conjunctiva clear. ENT: Ears normal, nares patent, oropharynx clear without exudates, moist mucous membranes. NECK: Trachea midline, full range of motion, supple. LUNGS: Breath sounds equal, clear to auscultation bilaterally, no wheezes, no crackles, no accessory muscle use. HEART: Regular rate and rhythm, S1, S2 without murmur, rub or gallop. ABDOMEN: Soft, nontender, nondistended, normoactive bowel sounds, no guarding, no rebound. EXTREMITIES: 2+ pulses, warm, well-perfused, no edema. NEUROLOGICAL: Cranial nerves II through XII grossly intact. PSYCH: Normal mood, normal affect. SKIN: Warm, dry. Generalized rash on chest and lower extremities, much less significant as compared to yesterday. LABS Laboratory Results - last 24 hr CBC, BMP 03/22/19 07:30 03/22/19 07:30 Microbiology 03/20/19 21:00 Urine - Urine Clean Catch Urine Culture - Final NO GROWTH OBTAINED 03/20/19 22:40 Blood - Peripheral Venous Blood Culture - Preliminary NO GROWTH OBTAINED AFTER 24 HOURS, INCUBATION TO CONTINUE FOR 4 DAYS. 03/20/19 22:40 Blood - Peripheral Venous Blood Culture - Preliminary NO GROWTH OBTAINED AFTER 24 HOURS, INCUBATION TO CONTINUE FOR 4 DAYS. 03/21/19 11:50 Blood - Peripheral Venous Blood Parasites Smear - Final 03/20/19 22:10 Blood - Peripheral Venous Blood Parasites Smear - Final HOSPITAL COURSE: Date of Admission:03/20/19 Date of Discharge: 03/22/19 38 M with PMH of HTN presenting with generalized weakness, fatigue, and diffuse rash likely secondary to viral infection. Patient was noted to have leukopenia and recent travel abroad to [place]. Patient was given Benadryl, ketorolac, and IV fluids were started. Testing was done for parasites, HIV, RPR , and Hepatitis C which were negative. Tests are still pending for Dengue Fever , Hepatitis A, and Hepatitis B. ID was consulted and felt that there was no further work-up needed. Patient improved and had no fevers overnight, no tachycardia, no shortness of breath while he was here. Was stable for discharge on 03/22/19 and sent home. Relevant Imaging: Chest X-Ray: Unremarkable exam. Minutes to complete discharge: 35 Discharge Summary Problems reviewed: Yes Reason For Visit: FEVER, HISTORY OF RECENT TRAVEL,RASH Current Active Problems Leukopenia (Chronic) Condition: Improved - Instructions Diet, Activity, Other Instructions: You were admitted to the hospital because of an extensive rash all over your body. While you were here we treated your rash with Benadryl and IV fluids and it improved. We sent out testing for viral causes which are still pending, please follow up with your doctor to receive final results. We also saw that your white blood cell count was low, but we think it is due to the virus that likely caused your rash. You will need to follow up with your primary care physician in a week to repeat your blood tests (CBC). For continued itching take Bendaryl, 25 mg by mouth every 6 hours as needed. Do not exceed 300 mg a day. Please follow up with your primary care physician within a week. If you do not have one, you can come see us at our clinic. We have included a referral. Return to the Emergency Department if you fevers, chills, nausea, vomiting, diarrhea, chest pain, shortness of breath, abdominal pain, or worsening of your condition. [place] [facility] [place] [facility] [place] Group] Disposition: HOME This patient is new to me today: No Emergency Visit: Yes ED Registration Date: 03/20/19 Care time: The patient presented to the Emergency Department on the above date and was hospitalized for further evaluation of their emergent condition. Critical Care patient: No - Discharge Referral Referred to [facility] No ATTENDING PHYSICIAN STATEMENT I saw and evaluated the patient. I reviewed the resident's note and discussed the case with the resident. I agree with the resident's findings and plan as documented. SUBJECTIVE: OBJECTIVE: ASSESSMENT AND PLAN:
[2019-03-22 14:59] VITALS: BP 109/79; PULSE 76; TEMP 98.1
[2019-03-22 20:07] LABS: HEP B CORE AB, TOT Positive (Negative)
[2019-03-25 06:06] LABS: ZIKA VIRUS SER. Negative (Negative); ZIKA VIRUS UR. Negative (Negative)
== END 2019-03-22 15:51 | disposition home or self-care (01) | DRG 723 ==
LOC: JER 18:19 → JERBED 22:30 → J8W 03-21 03:43
PROVIDERS: ADMIT Internal Medicine; ATTEND Internal Medicine
DX: B34.9 Viral infection, unspecified (principal); E87.1 Hypo-osmolality and hyponatremia; D72.819 Decreased white blood cell count, unspecified; R50.9 Fever, unspecified; R21 Rash and other nonspecific skin eruption
CPT/HCPCS: 36415; 71045-TC-FY; 80048; 80053; 80074; 81003; 82550; 83605; 83735; 84100; 85025; 85610; 85651; 85730; 86140; 86593; 86704; 86705; 86706; 86707; 86708; 86709; 86790; 87040; 87086; 87207; 87340; 87389; 87522; 93005; 93010; 99284-25; J7030; Q2036

== ENCOUNTER 2023-09-05 23:36 | Emergency (ER) | payer OTHER ==
[2023-09-05 23:42] VITALS: BP 155/102; PULSE 65; RESP 16; TEMP 97.5; BMI 31.6
[2023-09-06 02:02] LABS: BASO % 0.1 % (0-2.0); EOS % 0.8 % (0-4.5); HEMATOCRIT 40.5 % (35.4-49); HEMOGLOBIN 14.3 GM/dL (11.7-16.9); MCH 30.1 pg (25.7-33.7); MCHC 35.2 g/dl (32.0-35.9); MEAN CELL VOLUME 85.6 fl (80-96); MEAN PLT VOLUME 8.5 fl (7.5-11.1); MONO % 11.3 % (3.8-10.2); NEUT % 49.8 % (42.8-82.8); PLATELET COUNT 188 10^3/uL (134-434); RBC 4.74 M/mm3 (4.00-5.60); RDW 13.4 % (11.9-15.9); WHITE BLOOD COUNT 7.9 K/mm3 (4.0-10.0)
[2023-09-06 02:14] LABS: POTASSIUM 3.7 mmol/L (3.5-5.1)
[2023-09-06 02:18] LABS: ALBUMIN 3.7 g/dl (3.4-5.0); BLOOD UREA NITROGEN 17.7 mg/dL (7-18); CALCIUM 8.9 mg/dL (8.5-10.1)
[2023-09-06 02:20] LABS: CREATININE 1.3 mg/dL (0.55-1.3)
[2023-09-06 02:22] LABS: BILIRUBIN,TOTAL 0.4 mg/dL (0.2-1); TOT PROT 7.2 g/dl (6.4-8.2)
== END 2023-09-06 03:32 | disposition home or self-care (01) ==
LOC: FER 23:36
DX: R00.2 Palpitations (principal)
CPT/HCPCS: 36415; 80053; 82550; 82553; 84443; 84484; 85025; 93005; 99284-25